=== PATIENT | male | born 1985 | race Caucasian/White ===

== ENCOUNTER 2019-04-01 00:56 | Outpatient (CLI) | payer SELFPAY ==
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
[2019-04-01] MEDS: Omnipaque 350 MG/ML 100 ML BTL IJ (09:30)
[2019-04-01] MEDS: Normal Saline Flush 10 ML SYR IVP (09:31)
[2019-04-01] MEDS: Breeza Beverage 473 ML BTL PO ×2 (09:33→09:35)
[2019-04-01] MEDS: Omnipaque 350 MG/ML 50 ML BTL PO (09:34)
== END 2019-04-01 01:16 ==
PROVIDERS: PCP Family Medicine; Visit Provider Surgery
DX: R10.31 Right lower quadrant pain (principal); K76.0 Fatty (change of) liver, not elsewhere classified; J98.11 Atelectasis
CPT/HCPCS: 74177; J3490; Q9967

== ENCOUNTER 2019-05-05 12:47 | Outpatient (REF) | payer SELFPAY ==
[2019-05-05 22:53] LABS: ALT 35 U/L (16-63); AST 21 U/L (15-37); Albumin 4.1 g/dL (3.4-5.0); Alkaline Phosphatase 91 U/L (46-116); Anion Gap 10.2 mmol/L (3-11); BUN 6 mg/dL (7-18); Bilirubin, Total 0.4 mg/dL (0.2-1.0); CO2 29.8 mmol/L (21.0-32.0); CREATININE 0.96 mg/dL (0.70-1.30); Calcium 9.6 mg/dL (8.5-10.1); Calculated LDL 241 mg/dL; Chloride 107 mmol/L (98-107); Cholesterol 320 mg/dL (<200); Glucose 86 mg/dL (74-106); HDL Cholesterol 30 mg/dL (40-60); Potassium 4.8 mmol/L (3.5-5.1); Sodium 147 mmol/L (136-145); TSH (W/Ref FT4) 2.09 uIU/mL (0.36-3.74); Total Protein 7.5 g/dL (6.4-8.2); Triglyceride 247 mg/dL (<150)
== END 2019-05-05 13:07 ==
LOC: NCHCN 12:47
PROVIDERS: PCP Family Medicine; Visit Provider Nurse Practitioner Community Health
DX: R03.0 Elevated blood-pressure reading, without diagnosis of hypertension (principal)
CPT/HCPCS: 80053; 80061; 82664; 84311; 84478; 84443

== ENCOUNTER 2019-05-08 07:16 | Outpatient (CLI) | payer SELFPAY ==
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
[2019-05-08] MEDS: Normal Saline - Diluent 50 ML VIAL IV (11:24)
[2019-05-08] MEDS: Omnipaque 350 MG/ML 100 ML BTL IV (11:26)
== END 2019-05-08 07:36 ==
PROVIDERS: PCP Family Medicine; Visit Provider Nurse Practitioner Community Health
DX: G44.82 Headache associated with sexual activity (principal)
CPT/HCPCS: 70496; J3490

== ENCOUNTER 2022-04-03 15:12 | Emergency (ER) | payer SELFPAY ==
[2022-04-03 15:10] VITALS: BP 167/112; PULSE 82; RESP 18; TEMP 36.7; O2SAT 98
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
[2022-04-03 16:00] LABS: Abs Immature Grans 0.07 10^3/uL (0.0-0.06); Absolute Basophil Count 0.07 10^3/uL (0.0-0.2); Absolute Eosinophil Count 0.31 10^3/uL (0.0-0.7); Absolute Neutrophil Count 10.09 10^3/uL (1.2-6.7); Basophils % 0.5; Eosinophils % 2.2; HCT 49.3 % (40.0-50.0); HGB 16.2 g/dL (13.5-17.5); Immature Grans % 0.5; Lymphocytes % 18.5; MCH 28.7 pg (27.0-33.0); MCHC 32.9 % (32.0-36.0); MCV 87 fL (80-95); MPV 8.6 fL (8.0-11.0); Monocytes % 6.4; Neutrophils % 71.9; Platelet Count 299 10^3/uL (130-400); RBC 5.64 10^6/uL (4.36-5.78); RDW 13.1 % (11.8-14.1); RDW-SD 42.2 fL; WBC 14.03 10^3/uL (4.4-10.8)
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
[2022-04-03] MEDS: Omnipaque 350 MG/ML 100 ML BTL IJ (16:04)
[2022-04-03 16:09] LABS: Lipase 153 U/L (73-393)
[2022-04-03 16:15] LABS: ALT 39 U/L (16-63); AST 33 U/L (15-37); Alkaline Phosphatase 87 U/L (46-116); Anion Gap 9.4 mmol/L (3-11); BUN 8 mg/dL (7-18); Bilirubin, Total 0.7 mg/dL (0.2-1.0); CO2 26.6 mmol/L (21.0-32.0); CREATININE 0.9 mg/dL (0.70-1.30); Chloride 102 mmol/L (98-107); Estimated GFR 112.11 (mL/min/1.73m2); Glucose 140 mg/dL (74-106); Potassium 3.8 mmol/L (3.5-5.1); Sodium 138 mmol/L (136-145); Total Protein 7.5 g/dL (6.4-8.2); Troponin I < 50 ng/L (<or=60)
[2022-04-03] MEDS: ACETAMINOPHEN 1,000 MG/100 ML BTL 400 MG IVPB (16:41)
[2022-04-03] MEDS: Normal Saline 1,000 ML 1000 ML IV (16:41)
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
[2022-04-03 16:49] VITALS: BP 150/66; PULSE 81; RESP 18; O2SAT 97
[2022-04-03 18:59] VITALS: BP 148/76; PULSE 83; RESP 18; O2SAT 97
[2022-04-03] MEDS: MORPHine 4 MG/ML SYR IVP (19:10)
== END 2022-04-03 19:17 | disposition short-term general hospital (02) ==
PROVIDERS: Emergency Provider Physician Assistant; PCP Family Medicine
DX: S20.219A Contusion of unspecified front wall of thorax, initial encounter (principal); S60.512A Abrasion of left hand, initial encounter; S80.812A Abrasion, left lower leg, initial encounter; S92.321A Displaced fracture of second metatarsal bone, right foot, initial encounter for closed fracture; S92.331A Displaced fracture of third metatarsal bone, right foot, initial encounter for closed fracture; S92.351A Displaced fracture of fifth metatarsal bone, right foot, initial encounter for closed fracture; E66.9 Obesity, unspecified; I10 Essential (primary) hypertension; J45.909 Unspecified asthma, uncomplicated; F17.200 Nicotine dependence, unspecified, uncomplicated; Z23 Encounter for immunization; V89.2XXA Person injured in unspecified motor-vehicle accident, traffic, initial encounter; W22.8XXA Striking against or struck by other objects, initial encounter
CPT/HCPCS: 29515; 71275; 80053; 83690; 90471; 93005; 96361; 96374; 96375; 99285; 73610; 73630; 73700; 74174; 83735; 84484; 85025; 93010; J0131; J2270; J3490

== ENCOUNTER 2022-12-11 09:32 | Outpatient (REF) | payer OTHER, SELFPAY ==
[2022-12-11 15:50] LABS: ALT 36 U/L (16-63); AST 11 U/L (15-37); Albumin 3.5 g/dL (3.4-5.0); Alkaline Phosphatase 90 U/L (46-116); Anion Gap 8.4 mmol/L (3-11); BUN 7 mg/dL (7-18); Bilirubin, Total 0.4 mg/dL (0.2-1.0); CO2 24.6 mmol/L (21.0-32.0); CREATININE 0.7 mg/dL (0.70-1.30); Calculated LDL 193 mg/dL (<100); Chloride 105 mmol/L (98-107); Cholesterol 266 mg/dL (<200); Glucose 101 mg/dL (74-106); HDL Cholesterol 27 mg/dL (40-60); Potassium 4.3 mmol/L (3.5-5.1); Sodium 138 mmol/L (136-145); Total Protein 6.9 g/dL (6.4-8.2); Triglyceride 232 mg/dL (<150)
== END 2022-12-11 09:33 | disposition home or self-care (01) ==
LOC: NCHCN 09:32
PROVIDERS: PCP Family Medicine; Visit Provider Nurse Practitioner Family
DX: I10 Essential (primary) hypertension (principal); E78.5 Hyperlipidemia, unspecified; E66.8 Other obesity; Z68.42 Body mass index [BMI] 45.0-49.9, adult
CPT/HCPCS: 80053; 80061

== ENCOUNTER 2023-10-02 18:58 | Outpatient (REF) | payer OTHER, SELFPAY ==
[2023-10-02 15:56] LABS: Hemoglobin A1C 5.5 % (<5.7)
[2023-10-02 16:26] LABS: ALT 40 U/L (16-63); AST 22 U/L (15-37); Albumin 3.4 g/dL (3.4-5.0); Alkaline Phosphatase 91 U/L (46-116); Anion Gap 7.6 mmol/L (3-11); BUN 8 mg/dL (7-18); Bilirubin, Total 0.3 mg/dL (0.2-1.0); CO2 26.4 mmol/L (21.0-32.0); CREATININE 0.7 mg/dL (0.70-1.30); Calcium 9.4 mg/dL (8.5-10.1); Calculated LDL 129 mg/dL (<100); Chloride 107 mmol/L (98-107); Cholesterol 186 mg/dL (<200); Estimated GFR 119.46 (mL/min/1.73m2); Glucose 104 mg/dL (74-106); HDL Cholesterol 34 mg/dL (40-60); Sodium 141 mmol/L (136-145); Total Protein 6.8 g/dL (6.4-8.2); Triglyceride 118 mg/dL (<150)
== END 2023-10-02 18:59 | disposition home or self-care (01) ==
LOC: NCHCN 18:58
PROVIDERS: PCP Family Medicine; Visit Provider Nurse Practitioner Family
DX: Z00.00 Encounter for general adult medical examination without abnormal findings (principal)
CPT/HCPCS: 80053; 80061; 83036

== ENCOUNTER 2024-04-01 15:10 | Outpatient (REF) | payer OTHER, SELFPAY ==
[2024-04-01 15:21] LABS: ALT 37 U/L (16-63); AST 22 U/L (15-37); Albumin 3.8 g/dL (3.4-5.0); Alkaline Phosphatase 101 U/L (46-116); Anion Gap 6.7 mmol/L (3-11); BUN 6 mg/dL (7-18); Bilirubin, Total 0.51 mg/dL (0.2-1.0); CO2 30.3 mmol/L (21.0-32.0); CREATININE 0.8 mg/dL (0.70-1.30); Calcium 9.4 mg/dL (8.5-10.1); Calculated LDL 89 mg/dL (<100); Chloride 108 mmol/L (98-107); Cholesterol 150 mg/dL (<200); Estimated GFR 114.74 (mL/min/1.73m2); Glucose 85 mg/dL (74-106); HDL Cholesterol 36 mg/dL (40-60); Potassium 3.9 mmol/L (3.5-5.1); Sodium 145 mmol/L (136-145); Total Protein 7.2 g/dL (6.4-8.2); Triglyceride 125 mg/dL (<150)
== END 2024-04-01 15:11 | disposition home or self-care (01) ==
LOC: NCHCN 15:10
PROVIDERS: PCP Family Medicine; Visit Provider Nurse Practitioner Family
DX: E78.5 Hyperlipidemia, unspecified (principal); I10 Essential (primary) hypertension
CPT/HCPCS: 80053; 80061

== ENCOUNTER 2024-05-06 17:59 | Outpatient (REF) | payer OTHER, SELFPAY ==
[2024-05-06 16:20] LABS: Anion Gap 6.6 mmol/L (3-11); BUN 8 mg/dL (7-18); CO2 29.4 mmol/L (21.0-32.0); CREATININE 0.8 mg/dL (0.70-1.30); Calcium 9.8 mg/dL (8.5-10.1); Chloride 106 mmol/L (98-107); Estimated GFR 114.74 (mL/min/1.73m2); Glucose 113 mg/dL (74-106); Potassium 4.1 mmol/L (3.5-5.1); Sodium 142 mmol/L (136-145)
== END 2024-05-06 18:00 | disposition home or self-care (01) ==
LOC: NCHCN 17:59
PROVIDERS: PCP Family Medicine; Visit Provider Nurse Practitioner Family
DX: I10 Essential (primary) hypertension (principal)
CPT/HCPCS: 80048